=== PATIENT | female | born 2005 | race Hispanic/Latino ===

== ENCOUNTER 2025-01-10 02:32 | Emergency (ER) | payer OTHER ==
[~2025-01-10] VITALS: Ht 167.6 cm; Wt 100.7 kg
[2025-01-10 02:41] VITALS: PULSE 120; RESP 18; TEMP 97.5
[2025-01-10] MEDS ORDERED: DONNATAL/LIDOCAINE/MAALOX 30 ML SUSP PO ONE (03:45)
[2025-01-10] MEDS: BELLADONNA ALK/PHENOBARBITAL 5 ML UDC PO ONE (04:51)
[2025-01-10] MEDS: KETOROLAC TROMETHAMINE 30 MG/ML VIAL IV STA (04:54)
[2025-01-10] MEDS: FAMOTIDINE 20 MG/2 ML VIAL IV STA (04:54)
[2025-01-10] MEDS: LIDOCAINE VISC 2% SOLN 15 ML UDC PO ONE (04:54)
[2025-01-10] MEDS: ONDANSETRON HCL INJ 2MG/ML 2ML 2 MG/ML VIAL IV STA (04:54)
[2025-01-10] MEDS: MAGNESIUM/ALUMINUM/SIMETHICONE 30 ML UDC PO ONE (04:55)
[2025-01-10] MEDS ORDERED: IOPAMIDOL 370 MG/ML 100 ML INFUS..BTL INJ ONE (04:55)
[2025-01-10 05:55] VITALS: BP 120/68; PULSE 91; RESP 18; TEMP 98.2; O2SAT 99
== END 2025-01-10 05:55 | disposition home or self-care (01) ==
LOC: FSED 03:35
DX: R11.2 Nausea with vomiting, unspecified (principal); A05.9 Bacterial foodborne intoxication, unspecified; K29.70 Gastritis, unspecified, without bleeding; R10.33 Periumbilical pain; Z11.52 Encounter for screening for COVID-19
CPT/HCPCS: 0223U; 74177; 87400; 96374; 96375; 99283; J1885; J2405; Q9967